=== PATIENT | male | born 1970 | race Caucasian/White ===

== ENCOUNTER 2020-01-29 14:19 | Emergency (ER) | payer BC ==
[~2020-01-29] VITALS: Ht 190.5 cm; Wt 144.2 kg
[2020-01-29 14:34] VITALS: Ht 190.5 cm; Wt 144.2 kg
[2020-01-29 15:47] LABS: BASOPHIL % 0.3 % (0-2); PLATELET COUNT 289 x10^3mcL (130-400); RED CELL DISTRIBUTION WIDTH 13.9 % (11.5-14.5)
[2020-01-29 16:21] LABS: ALBUMIN 3.8 g/dL (3.4-5.0); ALKALINE PHOSPHATASE 60 U/L (46-116); ALT/SGPT 52 U/L (16-63); AST/SGOT 25 U/L (15-37); BILIRUBIN TOTAL 0.4 mg/dL (0.20-1.00); CALCIUM 8.9 mg/dL (8.5-10.1); CARBON DIOXIDE 27.8 mmol/L (21-32); CHLORIDE SERUM 103 mmol/L (98-107); GFR1 > 60 mL/min; GLUCOSE SERUM 88 mg/dL (74-106); LIPASE 173 IU/L (73-393); SODIUM SERUM 141 mmol/L (136-145); TOTAL PROTEIN, SERUM 7.5 g/dL (6.4-8.2)
[2020-01-29 16:30] LABS: CHOLESTEROL 207 mg/dL (<200); CHOLESTEROL/HDL RATIO 6.1; HDL CHOLESTEROL 34 mg/dL (40-60); T3 TOTAL 1.53 ng/mL; TRIGLYCERIDES 357 mg/dL (<150)
[2020-01-29 16:54] LABS: FREE T4 1.06 ng/dL (0.76-1.46); FREE THYROXINE INDEX 2.4 ug/dL (1.4-4.5); T4(THYROXINE) 8.6 ug/dL (4.7-13.3)
[2020-01-29 18:50] VITALS: BP 151/95
== END 2020-01-29 19:22 | disposition home or self-care (01) ==
LOC: ED 14:19
PROVIDERS: Specialist
DX: R20.2 Paresthesia of skin (principal); R07.89 Other chest pain; R42 Dizziness and giddiness; I10 Essential (primary) hypertension; Z88.0 Allergy status to penicillin
CPT/HCPCS: 36415; 83880; 84439; Q0092